=== PATIENT | female | born 1985 ===

== ENCOUNTER 2017-02-01 00:51 | Emergency (ER) | payer OTHER, MEDICAID ==
[~2017-02-01] VITALS: Ht 165.1 cm; Wt 90.0 kg
[~2017-02-01 00:51] MED LIST: CYCL5TAB PO; NPR500T PO
[2017-02-01 00:56] VITALS: BP 129/78; PULSE 94; RESP 16; O2SAT 97
[2017-02-01] MEDS ORDERED: NAPR500T PO (01:48)
[2017-02-01] MEDS ORDERED: FAMO20T PO (01:48)
--- NOTE | 2017-02-01 02:01 | ED.REPORT ---
HPI-Extremity Problem Lower Date of Service Feb 01, 2017 ED Provider: Allan Lance MD A 31 year old female with a history of rheumatoid arthritis presents to the ED complaining of left ankle pain. The pt was at work tonight when she rolled her ankle. She felt immediate pain that has persisted since, though she was able to walk. The pt was instructed to come to the ED by her employer and has no other complaints. Nursing Notes Stated Complaint: LEFT ANKLE INJURY Chief Complaint: Extremity Trauma Nursing Notes Reviewed: Yes Allergies: Coded Allergies: sulfamethoxazole (Verified Allergy, Unknown, hives, 03/06/14) trimethoprim (Verified Allergy, Unknown, hives, 03/06/14) Scheduled Cyclobenzaprine (Cyclobenzaprine) 5 Mg Tablet 5 MG PO HS Famotidine (Pepcid) 20 Mg Tablet 20 MG PO BID Naproxen (Naproxen) 500 Mg Tab 500 MG PO DAILY Scheduled PRN Naproxen (Naprosyn) 500 Mg Tablet 500 MG PO BID PRN PRN For Pain General Time Seen by MD: 01:03 Chief Complaint Ankle injury left Hx Obtained From: Patient Arrived By: Walk-in Onset Occurred: 1 - 4 hours ago Symptom Duration: Since onset Recent Healthcare: Recent doctor visit, Recent hospitalization Similar Sx Previous: No Past Medical History Past Medical History rheumatoid arthritis Past Surgical History none reported Family History Mother has hx of migraines Smoking History Unknown if Ever Smoker Social History Alcohol Use: "Social" Drug Use: Denies drug use Ambulatory Status Independent Review of Systems Musculoskeletal: Reports: Extremity pain (left ankle), Denies: Back pain, Neck pain Skin: Denies Rash Complete sys rev & neg: except as marked. Respiratory: Denies: Non-productive cough, Shortness of breath Cardiovascular: Denies: Chest pain Physical Exam Initial Vital Signs Vital Signs (First) Date Time Temp Pulse Resp B/P Pulse Ox O2 Delivery O2 Flow Rate FiO2 02/01/17 00:56 36.6 94 16 129/78 97 Room Air Initial VS: Reviewed Lower Extremity / Pelvis / MS: Atraumatic, Full range of motion Ankle / Foot: No deformity tender left lateral malleolus with minimal swelling tendon function intact neurovascularly intact distally General/Constitutional: Awake, Alert Respiratory / Chest: Atraumatic, Breath sounds NL, Breath sounds = bilat, No respiratory distress Cardiovascular: Heart rate NL, Regular rhythm, Heart sounds NL Skin: Atraumatic, Color NL, No rash, Warm, Dry Neurologic: Oriented X3, Speech NL, No motor deficits, No sensory deficits Head / Eyes: Atraumatic, Normocephalic, PERRL, EOMI ENT: Atraumatic, Airway patent, Mucous membranes moist Neck: Atraumatic, Supple, Full range of motion Abdomen: Atraumatic, Soft, Non-tender Back: Atraumatic, Full range of motion Upper Extremity / MS: Atraumatic, Full range of motion Psychiatric: Affect NL, Mood NL Interpretation & Diagnostics X-Ray Interpretation Xray Interpretation: no acute findings X-Ray Ordered: Ankle left Interpretation / Wet Read by: Wet read ED physician Procedures Splint Application - Fx Mgt Splint Application- Fx Mgt: Aircast Time: Procedure Performed by: ED physician, Consumer Services Consultant, Under my direct supervis Precise Anatomic Location: left ankle Definitive Fracture Care: Pain control Post-Procedure / Complications: Cap refill normal, Post splint vascular nl, Post splint neuro nl, Condition improved, Tolerated procedure well, Patient stable Re-Eval/Medical Decision Med Decision/Clinical Course 31-year-old with mild tenderness in her lateral malleolus after rolling her ankle at work. She did not wish to present, but was seen at the time of the injury and was referred in by her employer. She is provided with an Tray and Aircast splint for use inside of her shoe. Return to work wearing the Tray and Aircast beginning tomorrow, for one week. Follow-up with PCP. Dumas when necessary. Source of Hx: Old records Re-Evaluation/Progress : Time of Eval: Patient Status: Condition improved Re-Evaluation/Progress Note: Pt rechecked, who is resting comfortably. Splint is placed without complication. She is informed of radiology results, diagnosis and plan for discharge are discussed. The pt understands and agrees with the plan. All questions are addressed at this time. Counseled Regarding: Diagnosis, Lab results, Need for follow-up, When/why to return to ED Discharge & Departure Impression: Primary Impression: Ankle sprain Encounter type: initial encounter Involved ligament of ankle: calcaneofibular ligament Laterality: left Qualified Code: S93.412A - Sprain of calcaneofibular ligament of left ankle, initial encounter Disposition: Home Discharge Condition All VS Reviewed: Yes Condition: Stable Patient Instructions: Ankle Sprain (ED) Additional Instructions: Use Tray wrap and splint and then shoe whenever up. Remove all to sleep. Naprosyn twice daily with Pepcid twice daily as long as you are on Naprosyn. Follow-up with your doctor in the office. Referrals: OTHER,PHYSICIAN (PCP) (Family) Scribe Attestation Portions of this note were transcribed by Julita Blair. I, Dr. Lance personally performed the history, physical exam and medical decision-making; I reviewed and confirmed the accuracy of the information in the transcribed note. Signed by: Nixon Neves, 02/01/2017 and 0255. Allan Lance MD Feb 01, 2017 02:01 JULITA BLAIR Feb 01, 2017 02:12
[2017-02-01 02:08] VITALS: BP 129/78; PULSE 94; RESP 16; O2SAT 97
--- NOTE | 2017-02-01 07:39 | DRSVH ---
PROCEDURE: X-RAY LEFT ANKLE, MINIMUM THREE VIEWS ([id number]) INDICATIONS: rolled medially at work TECHNIQUE: 3 views of the ankle were acquired. COMPARISON: [facility], , ANKLE MIN 3VW (LT), 04/10/2014, 20:37. FINDINGS: Bones: No fractures or dislocations. Ankle mortise is normally aligned. No suspicious bony lesions . Soft tissues: No tibiotalar joint effusion. Achilles tendon appears normal. IMPRESSION: No abnormality seen in the left ankle. Dictated by: Luis Prasad M.D. on 02/01/2017 at 7:36 Approved by: Luis Prasad M.D. on 02/01/2017 at 7:37
== END 2017-02-01 02:10 | disposition home or self-care (01) ==
LOC: SED 00:51
DX: S93.412A Sprain of calcaneofibular ligament of left ankle, initial encounter (principal); X50.1XXA Overexertion from prolonged static or awkward postures, initial encounter; Y93.89 Activity, other specified; Y92.69 Other specified industrial and construction area as the place of occurrence of the external cause; Y99.0 Civilian activity done for income or pay; M06.9 Rheumatoid arthritis, unspecified; Z88.1 Allergy status to other antibiotic agents